=== PATIENT | male | born 1960 | race Caucasian/White ===

== ENCOUNTER 2021-02-14 08:07 | Observation (INO) | payer BC ==
[~2021-02-14] VITALS: Ht 190.5 cm; Wt 150.0 kg
--- NOTE | 2021-02-14 08:10 | NUR ---
PT TO ROOM # 12 VIA W/C FOR BEDSIDE TRIAGE
[2021-02-14 09:22] LABS: HEMATOCRIT 49.4 % (39.0-50.0); HEMOGLOBIN 15.6 g/dl (14.0-18.0); IMMATURE GRANULOCYTES 0.3 % (0.0-5.0); MEAN CELL VOLUME 92.9 fL CALC (80.0-100.0); MEAN CORPUSCULAR HGB 29.3 pG CALC (26.0-32.0); MEAN CORPUSCULAR HGB CONC 31.6 g/dL CAL (32.0-36.0); NEUT# 6.96 thou/uL (1.82-7.42); RED BLOOD COUNT 5.32 mill/uL (4.70-6.10)
[2021-02-14 09:33] LABS: ALBUMIN 3.7 g/dL (3.2-5.0); ALKALINE PHOSPHATASE 82 u/l (38-126); ANION GAP 9 (6-22 (CALC)); BILIRUBIN, TOTAL 0.7 mg/dL (0.0-1.4); BUN 9 mg/dL (9-20); BUN/CREATININE RATIO 13 (12-20 (CALC)); CARBON DIOXIDE 34 mmol/l (22-30); CHLORIDE 101 mmol/l (95-108); CREATININE 0.7 mg/dL (0.7-1.3); GFR > 60 ML/MIN (>=60 (CALC)); GFR FOR AFR.AMER. > 60 ML/MIN (>=60 (CALC)); POTASSIUM 4.1 mmol/l (3.5-5.1); SGOT/AST 29 u/l (17-59); SODIUM 140 mmol/l (137-146)
--- NOTE | 2021-02-14 09:46 | NUR ---
PT RESTING, NO DISTRESS. STABLE ON MONITOR. CALL LIGHT WITHIN REACH.
--- NOTE | 2021-02-14 10:38 | NUR ---
PT RETURNED FROM RADIOLOGY. LAB HERE FOR DRAW. NO CONCERNS VOICED.
--- NOTE | 2021-02-14 11:54 | NUR ---
PT RESTING. FRIEND AT BEDSIDE. VITALS STABLE. PENDING ADMISSION.
--- NOTE | 2021-02-14 12:07 | NUR ---
SBAR PRINTED TO FLOOR
--- NOTE | 2021-02-14 12:38 | NUR ---
PT UP TO BATHROOM WITH STEADY GAIT.
--- NOTE | 2021-02-14 13:20 | NUR ---
REPORT GIVEN TO THAO GARRETT ON [facility].
[2021-02-14 13:56] VITALS: BP 153/85
--- NOTE | 2021-02-14 14:54 | NUR ---
REPORT RECEIVED FROM NOVEMBER IN ED, PT ARRIVED ON UNIT @ 1341, ALERT AND ORIENTED X 4 C/O SOB, NO OTHER COMPLAINS, ORIENTED TO ROOM AND CALL RUBI, EDUCATED ON DIABETES AND HYPERTENSION, TELE MONITOR IN PLACE, CALL RUBI IN REACH AND BED LOCKED IN LOWEST POSITION, WILL CONTINUE TO MONITOR
[2021-02-14 15:16] LABS: URINE BILIRUBIN - DIPSTICK NEGATIVE (NEGATIVE); URINE BLOOD DIPSTICK SMALL (NEGATIVE); URINE COLOR YELLOW; URINE GLUCOSE - DIPSTICK NEGATIVE (NEGATIVE); URINE KETONE NEGATIVE (NEGATIVE); URINE LEUK ESTERASE NEGATIVE (NEGATIVE); URINE NITRITE - DIPSTICK NEGATIVE (Negative); URINE PH 6.5 (4.5-8.0); URINE PROTEIN - DIPSTICK NEGATIVE (NEG-TRACE); URINE SPECIFIC GRAVITY 1.015; URINE UROBILINOGEN - DIPSTICK 0.2 E.U./dL (0.2)
[2021-02-14 15:24] LABS: URINE RBC 0-2 RBC/hpf (0-5)
[2021-02-14 19:00] VITALS: BP 146/76
--- NOTE | 2021-02-14 20:30 | NUR ---
RECEIVED REPORT FROM NURSE COLLIN, PATIENT RESTING IN BED, WITH SALINE LOCK ON LAC PATENT FLUSHES WELL, HOOKED TO TELEMETRY SR 68, LUNG SOUNDS CLEAR/DIMINISHED, OCCASIONAL COUGH NOTED, NO PRODUCTIVE, BREATHING SHALLOW, O2 SAT 88-91 % ON ROOM AIR, HOOKED TO O2 @ 2LPM SAT CURRENTLY AT 94%, BS 211 WILL COVER, DENIES PAIN AT THIS TIME, CALL LIGHT AT REACH.
--- NOTE | 2021-02-15 | NUR ---
PATIENT RESTING IN BED WITH EYES CLOSED, BREATHING SHALLOW, NOT IN RESPIRATORY DISTRESS REMAINS ON O2 @ 2LPM VIA NC CALL LIGHT AT REACH.
[2021-02-15 04:00] VITALS: BP 154/80
--- NOTE | 2021-02-15 04:19 | NUR ---
PATIENTY RESTING IN BED EYES CLOSED, REMAINS ON O2 @ 2LPM VIA NC BREATHING SHALLOW, UNLABORED CALL LIGHT AT REACH.
[2021-02-15 06:49] LABS: HEMATOCRIT 48.9 % (39.0-50.0); HEMOGLOBIN 15.6 g/dl (14.0-18.0); MEAN CELL VOLUME 92.6 fL CALC (80.0-100.0); MEAN CORPUSCULAR HGB 29.5 pG CALC (26.0-32.0); MEAN CORPUSCULAR HGB CONC 31.9 g/dL CAL (32.0-36.0); RED BLOOD COUNT 5.28 mill/uL (4.70-6.10); RED CELL DISTRI WIDTH 13.6 % (11.5-15.5)
[2021-02-15 06:50] LABS: ANION GAP 9 (6-22 (CALC)); BUN 10 mg/dL (9-20); BUN/CREATININE RATIO 12 (12-20 (CALC)); CALCULATED LDLCHOLESTEROL 128 mg/dL (62-129 (CALC)); CARBON DIOXIDE 35 mmol/l (22-30); CHLORIDE 99 mmol/l (95-108); CHOLESTEROL HDL RATIO 6.4 (<4.4 (CALC)); CREATININE 0.8 mg/dL (0.7-1.3); GFR > 60 ML/MIN (>=60 (CALC)); GFR FOR AFR.AMER. > 60 ML/MIN (>=60 (CALC)); HDL CHOLESTEROL 30 mg/dL (>=40); SODIUM 138 mmol/l (137-146); TOTAL CHOLESTEROL 193 mg/dl (0-199); TOTAL TRIGLYCERIDES 178 mg/dl (30-149); VLDL CHOLESTROL 36 mg/dl (8-62 (CALC))
[2021-02-15 06:53] LABS: POTASSIUM 5.4 mmol/l (3.5-5.1)
[2021-02-15 08:10] VITALS: BP 141/82
--- NOTE | 2021-02-15 08:10 | NUR ---
PT SITTING ON THE SIDE OF THE BED EATING BREAKFAST. A&O X4. NO DISTRESS NOTED. PT DENIES ANY PAIN AT THIS TIME. PT CURRENTLY ON ROOM AIR SUSTAINING 97%, O2 VIA NC @2L AT BEDSIDE IF SUPPLEMENTAL OXYGEN IS NEEDED. CLEAR/DIMINISHED BREATH SOUNDS HEARD UPON AUSCULTATION. ACTIVE BOWEL SOUNDS X4 QUADRANTS. TRACE EDEMA NOTED TO BLE. AGRICULTURAL CHEMIST COUGH NOTED. ASSESSMENT COMPLETED. DISCUSSED POC. CALL LIGHT WITHIN REACH.
--- NOTE | 2021-02-15 09:31 | NUR ---
DR KU AND Kailey PATTERSON ANALOG DEVICE DESIGNER AT BEDSIDE DISCUSSING POC
[2021-02-15] MEDS ORDERED: PREDNISONE50 MG PO (09:40)
[2021-02-15] MEDS ORDERED: PROAIR HFA108 MCG/AC IN (09:41)
[2021-02-15] MEDS ORDERED: ASPIRIN ADULT L81 M2 PO (09:42)
[2021-02-15] MEDS ORDERED: METFORMIN500 M2 PO (09:42)
[2021-02-15] MEDS ORDERED: AMLODIPINE BESYL5 MG PO (09:43)
[2021-02-15 12:20] VITALS: BP 164/95
--- NOTE | 2021-02-15 13:38 | NUR ---
PT UPDATED ON D/C PLANNING. PT AGREEABLE. BUS ANALYST PROVIDED EDUCATIONAL MATERIAL REGARDING APPROPRIATE DIETARY NEEDS. CALL LIGHT WITHIN REACH.
--- NOTE | 2021-02-15 14:43 | NUR ---
Discharge instructions given. Patient verbalizes understanding of same. Discharged in stable condition via wheelchair to home accompanied by staff. All belongings sent with pt.
== END 2021-02-15 14:41 | disposition home or self-care (01) | DRG 204 ==
LOC: ED 08:07 → ED-I 11:35 → ED 11:48 → MS2 11:49
PROVIDERS: Family Medicine; Nurse Practitioner; ADMIT Internal Medicine; ATTEND Internal Medicine
DX: R06.02 Shortness of breath (principal); Z68.41 Body mass index [BMI] 40.0-44.9, adult; R53.83 Other fatigue; G47.30 Sleep apnea, unspecified; R06.83 Snoring; E11.9 Type 2 diabetes mellitus without complications; I10 Essential (primary) hypertension; E66.9 Obesity, unspecified; Z87.891 Personal history of nicotine dependence; Z20.822 Contact with and (suspected) exposure to COVID-19
CPT/HCPCS: G0378; J1650; Q9967